=== PATIENT | male | born 1945 | race Caucasian/White ===

== ENCOUNTER 2016-10-09 12:32 | Day surgery (SDC) | payer MEDICARE, BC ==
[2016-10-09] MEDS ORDERED: PROPOFOL 10 MG/ML VIAL IV ONE (14:00)
[2016-10-09] MEDS ORDERED: LIDOCAINE 2% MDV (20MG/ML) 20ML VIAL IV ONE (14:00)
[2016-10-09] MEDS ORDERED: HYDROCORTISONE 100MG/VIAL IVP ONE (14:00)
[2016-10-09] MEDS ORDERED: MIDAZOLAM HCL 2MG/2ML VIAL IV ONE (14:00)
--- NOTE | 2016-10-13 10:10 | Operative Note ---
DATE OF SURGERY: 10/09/2016 OPERATION: COLONOSCOPY. PREOPERATIVE DIAGNOSIS: Personal history of colon polyps. POSTOPERATIVE DIAGNOSIS: Normal exam. ESTIMATED BLOOD LOSS: None. SPECIMENS: None. PREPARATION QUALITY: Excellent. COMPLICATIONS: None apparent. PROCEDURE: After informed consent was obtained from the patient, he was placed in the left lateral decubitus position in the endoscopy suite, sedated and monitored by the department of anesthesia. Digital rectal examination was unremarkable. A well-lubricated SCK017 colonoscope was inserted into the rectum and advanced to the cecum. The cecum and cecal bulb were noted by the ileocecal valve and appendiceal orifice and were unremarkable. The ascending colon, transverse colon, descending colon, sigmoid colon, and rectum were unremarkable as well. Forward and J-turn views of the rectum and anorectum were unrevealing. The endoscope was straightened, the rectal ampulla deflated, and the endoscope was removed. RECOMMENDATIONS: I would suggest the patient resume his medications and diet. He should undergo repeat exam in 5 years. As always, thank you for allowing me to participate in the healthcare of your patients. CC: Dr. Lilliam GRAY
== END 2016-10-09 14:25 | disposition home or self-care (01) ==
LOC: HOP 12:32
PROVIDERS: ATTEND Internal Medicine Gastroenterology
DX: Z86.010 Personal history of colon polyps (principal); E78.00 Pure hypercholesterolemia, unspecified; I10 Essential (primary) hypertension
CPT/HCPCS: 00810; G0105; J1720